=== PATIENT | female | born 1970 | race Caucasian/White ===

== ENCOUNTER 2017-10-28 16:28 | Emergency (ER) | payer BC | END 2017-10-28 21:42 | disposition home or self-care (01) | LOC: D.ER 16:28 | DX: J02.9 Acute pharyngitis, unspecified (principal) ==

== ENCOUNTER 2018-05-04 20:16 | Emergency (ER) | payer BC ==
[~2018-05-04] VITALS: Ht 162.6 cm; Wt 87.7 kg
[2018-05-04 20:35] VITALS: Ht 162.6 cm; Wt 87.7 kg
[2018-05-04] MEDS ORDERED: MAXALT10 MG PO (20:40)
[2018-05-04] MEDS ORDERED: VITAMIN D10000 UNI1 PO (20:41)
[2018-05-04] MEDS ORDERED: ELAVIL25 MG PO (20:41)
[2018-05-04] MEDS ORDERED: ATIVAN0.5 MG PO (20:41)
[2018-05-04 21:13] LABS: BASOPHILS 0.6 % (0-2); EOSINOPHILS 1.9 % (0-7); HEMATOCRIT 40.9 % (36.0-48.0); IMMATURE GRANULOCYTES 0.6 % (0-5); LYMPHOCYTES 37.1 % (15-50); MCH 29.4 pg (26.0-34.0); MCHC 34.2 g/dL (31.0-37.0); MCV 85.7 fL (80.0-100.0); MEAN PLATELET VOLUME 9.5 fL (7.4-10.4); MONOCYTES 6.3 % (2-11); NEUTROPHILS 53.5 % (40-80); PLATELET COUNT 273 10x3/uL (130-400); RBC 4.77 10x6/uL (4.00-5.40); RDW 12.5 % (11.5-14.5); WBC 8.4 10x3/uL (4.8-10.8)
[2018-05-04 21:21] LABS: APTT 28.3 SECONDS (22.8-39.4); D-DIMER-QUANTITATIVE 0.36 ug/mLFEU (0.20-0.54)
[2018-05-04 21:22] LABS: INR 0.88 (0.85-1.17); PROTIME 11.6 SECONDS (11.6-15.0)
[2018-05-04 21:26] LABS: ALBUMIN 3.6 g/dL (3.4-5.0); ALKALINE PHOSPHATASE 62 U/L (46-116); ALT (SGPT) 41 U/L (10-68); BILIRUBIN - TOTAL 0.19 mg/dL (0.2-1.3); CALC OSMOLALITY 277 mosm/kg (275-300); CALCIUM 8.4 mg/dL (8.5-10.1); CARBON DIOXIDE 23.7 mmol/L (21.0-32.0); CHLORIDE - SERUM 104 mmol/L (98-107); CREATININE - SERUM 0.9 mg/dL (0.6-1.3); GLUCOSE 119 mg/dL (74-106); POTASSIUM - SERUM 3.3 mmol/L (3.5-5.1); PROTEIN - SERUM 6.9 g/dL (6.4-8.2); SODIUM 139 mmol/L (136-145); UREA NITROGEN 11 mg/dL (7-18); eGFR NON AFRICAN AMERICAN 72 mL/min (90-120)
[2018-05-04 21:39] LABS: CKMB 0.6 U/L (0.0-3.6); CREATINE KINASE 78 UL (21-215); TROPONIN-I < 0.017 ng/mL (0.000-0.060)
[2018-05-05 04:39] VITALS: BP 129/90
== END 2018-05-05 01:30 | disposition home or self-care (01) ==
LOC: D.ER 20:16
PROVIDERS: Family Medicine
DX: G43.909 Migraine, unspecified, not intractable, without status migrainosus (principal)

== ENCOUNTER 2018-05-15 11:19 | Emergency (ER) | payer SELFPAY ==
[~2018-05-15] VITALS: Ht 162.6 cm; Wt 87.7 kg
[~2018-05-15 11:19] MED LIST: ATIVAN0.5 MG PO; ELAVIL25 MG PO; MAXALT10 MG PO; VITAMIN D10000 UNI1 PO
[2018-05-15 11:24] VITALS: Ht 162.6 cm; Wt 87.7 kg
[2018-05-15] MEDS ORDERED: ATARAX 25 MG TA25 MG PO (11:25)
[2018-05-15] MEDS ORDERED: DOXYCYCLINE HY100 M2 PO (13:12)
[2018-05-15 13:47] VITALS: BP 130/90
[2018-05-15 14:02] LABS: BASOPHILS 0.4 % (0-2); HEMATOCRIT 41.5 % (36.0-48.0); HEMOGLOBIN 14.2 g/dL (12-16); IMMATURE GRANULOCYTES 0.4 % (0-5); LYMPHOCYTES 37.1 % (15-50); MCH 29.3 pg (26.0-34.0); MCHC 34.2 g/dL (31.0-37.0); MCV 85.7 fL (80.0-100.0); MEAN PLATELET VOLUME 9.4 fL (7.4-10.4); MONOCYTES 6.3 % (2-11); NEUTROPHILS 52.8 % (40-80); PLATELET COUNT 278 10x3/uL (130-400); RBC 4.84 10x6/uL (4.00-5.40); RDW 12.5 % (11.5-14.5); WBC 6.7 10x3/uL (4.8-10.8)
[2018-05-15 14:16] LABS: ALBUMIN 3.6 g/dL (3.4-5.0); ALKALINE PHOSPHATASE 60 U/L (46-116); ALT (SGPT) 28 U/L (10-68); BILIRUBIN - TOTAL 0.22 mg/dL (0.2-1.3); CALC OSMOLALITY 276 mosm/kg (275-300); CALCIUM 9.1 mg/dL (8.5-10.1); CARBON DIOXIDE 26.7 mmol/L (21.0-32.0); CHLORIDE - SERUM 104 mmol/L (98-107); CREATININE - SERUM 0.8 mg/dL (0.6-1.3); GLUCOSE 99 mg/dL (74-106); POTASSIUM - SERUM 3.5 mmol/L (3.5-5.1); PROTEIN - SERUM 7.1 g/dL (6.4-8.2); SODIUM 139 mmol/L (136-145); UREA NITROGEN 9 mg/dL (7-18); eGFR NON AFRICAN AMERICAN 82 mL/min (90-120)
[2018-05-19 03:13] LABS: RMSF IGM 0.36 index (0.00-0.89)
[2018-05-19 13:19] LABS: EHRLICHIA CHAFF IGG Negative (Neg:<1:64); EHRLICHIA CHAFF IGM Negative (Neg:<1:20); HGE IGG TITER Negative (Neg:<1:64); HGE IGM TITER Negative (Neg:<1:20)
== END 2018-05-15 13:48 | disposition home or self-care (01) ==
LOC: D.ER 11:19
PROVIDERS: Emergency Medicine
DX: A79.9 Rickettsiosis, unspecified (principal); R50.9 Fever, unspecified

== ENCOUNTER 2019-02-13 05:46 | Emergency (ER) | payer BC ==
[~2019-02-13] VITALS: Ht 162.6 cm; Wt 87.3 kg
[~2019-02-13 05:46] MED LIST changes: +ATARAX 25 MG TA25 MG PO; +DOXYCYCLINE HY100 M2 PO
[2019-02-13 05:50] VITALS: Ht 162.6 cm; Wt 87.3 kg
[2019-02-13] MEDS ORDERED: BROMFED-DM COU473 ML (05:51)
[2019-02-13] MEDS ORDERED: PRISTIQ50 MG (05:52)
[2019-02-13] MEDS ORDERED: AMBIEN10 MG (05:52)
[2019-02-13] MEDS ORDERED: ALBUTEROL SULF8.5 GM INH (05:52)
[2019-02-13] MEDS ORDERED: ARMOUR THYROID30 MG PO (05:53)
[2019-02-13 06:29] LABS: BASOPHILS 0.5 % (0-2); HEMOGLOBIN 13.6 g/dL (12-16); IMMATURE GRANULOCYTES 0.8 % (0-5); MCH 28.6 pg (26.0-34.0); MEAN PLATELET VOLUME 9.3 fL (7.4-10.4); NEUTROPHILS 60.7 % (40-80); PLATELET COUNT 295 10x3/uL (130-400); RBC 4.76 10x6/uL (4.00-5.40); RDW 13.1 % (11.5-14.5); WBC 7.8 10x3/uL (4.8-10.8)
[2019-02-13 06:43] LABS: ALBUMIN 3.6 g/dL (3.4-5.0); ALKALINE PHOSPHATASE 59 U/L (46-116); ALT (SGPT) 43 U/L (10-68); BILIRUBIN - TOTAL 0.27 mg/dL (0.2-1.3); CALC OSMOLALITY 278 mosm/kg (275-300); CALCIUM 8.6 mg/dL (8.5-10.1); CARBON DIOXIDE 21.2 mmol/L (21.0-32.0); CHLORIDE - SERUM 106 mmol/L (98-107); CREATININE - SERUM 0.8 mg/dL (0.6-1.3); GLUCOSE 110 mg/dL (74-106); POTASSIUM - SERUM 3.4 mmol/L (3.5-5.1); PROTEIN - SERUM 6.9 g/dL (6.4-8.2); SODIUM 140 mmol/L (136-145); UREA NITROGEN 10 mg/dL (7-18); eGFR NON AFRICAN AMERICAN 82 mL/min (90-120)
[2019-02-13 06:54] LABS: APTT 28.6 SECONDS (22.8-39.4); INR 0.96 (0.85-1.17); PROTIME 12.3 SECONDS (11.6-15.0)
[2019-02-13 06:55] LABS: D-DIMER-QUANTITATIVE 0.29 ug/mLFEU (0.20-0.54)
[2019-02-13 06:56] LABS: CKMB 0.9 U/L (0.0-3.6); CREATINE KINASE 52 UL (21-215); PRO BNP 33 pg/mL (0-125)
[2019-02-13 06:57] LABS: TROPONIN-I < 0.017 ng/mL (0.000-0.060)
[2019-02-13] MEDS ORDERED: STERAPRED DS 1010 MG PO (07:02)
[2019-02-13 08:04] VITALS: BP 120/77
== END 2019-02-13 08:09 | disposition home or self-care (01) ==
LOC: D.ER 05:46
PROVIDERS: Family Medicine
DX: J45.901 Unspecified asthma with (acute) exacerbation (principal); J40 Bronchitis, not specified as acute or chronic

== ENCOUNTER 2020-03-31 23:12 | Observation (INO) | payer BC ==
[~2020-03-31] VITALS: Ht 162.6 cm; Wt 117.9 kg
[~2020-03-31 23:12] MED LIST changes: +ALBUTEROL SULF8.5 GM INH; +AMBIEN10 MG; +ARMOUR THYROID30 MG PO; +BROMFED-DM COU473 ML; +PRISTIQ50 MG; +STERAPRED DS 1010 MG PO
[2020-03-31] MEDS ORDERED: ZITHROMAX TRI-500 MG PO (23:27)
[2020-03-31 23:51] LABS: HEMOGLOBIN 13.2 g/dL (12-16); LYMPHOCYTES 47.3 % (15-50); MCH 28.1 pg (26.0-34.0); MCHC 33.8 g/dL (31.0-37.0); MEAN PLATELET VOLUME 8.8 fL (7.4-10.4); NEUTROPHILS 45.3 % (40-80); RDW 12.2 % (11.5-14.5); WBC 7.4 10x3/uL (4.8-10.8)
[2020-03-31 23:54] LABS: PLATELET COUNT 399 10x3/uL (130-400)
[2020-04-01 00:01] LABS: CALC OSMOLALITY 278 mosm/kg (275-300); CALCIUM 8.7 mg/dL (8.5-10.1); CARBON DIOXIDE 23.5 mmol/L (21.0-32.0); CHLORIDE - SERUM 106 mmol/L (98-107); CREATININE - SERUM 0.9 mg/dL (0.6-1.3); GLUCOSE 154 mg/dL (74-106); POTASSIUM - SERUM 3.2 mmol/L (3.5-5.1); SODIUM 139 mmol/L (136-145); UREA NITROGEN 8 mg/dL (7-18); eGFR NON AFRICAN AMERICAN 71 mL/min (90-120)
[2020-04-01 00:15] LABS: ALBUMIN 3.5 g/dL (3.4-5.0); ALKALINE PHOSPHATASE 80 U/L (30-120); ALT (SGPT) 74 U/L (10-68); BILIRUBIN - TOTAL 0.21 mg/dL (0.2-1.3); C-REACTIVE PROTEIN 0.4 mg/dL (0.0-0.9); LIPASE 170 U/L (73-393); MAGNESIUM - SERUM 1.9 mg/dL (1.8-2.4); PRO BNP 34 pg/mL (0-125); PROTEIN - SERUM 6.7 g/dL (6.4-8.2); TROPONIN-I < 0.017 ng/mL (0.000-0.060)
--- NOTE | 2020-04-01 02:00 | NUR ---
PT C/O ITCHING TO HER FEET AT THIS TIME. MD INFORMED. NO RASH NOTED.
--- NOTE | 2020-04-01 03:17 | NUR ---
PT STATES THAT SHE IS ABLE TO TAKE ROCEPHIN. PT HAD ROCEPHIN WEDNESDAY WITH NO REACTION. INFORMED.
[2020-04-01 03:33] VITALS: BP 125/88
--- NOTE | 2020-04-01 03:35 | NUR ---
PT ARIVES TO ROOM ROCEPHINE PUT TO PUMP BED LOW AND LOCKED AND CALL LIGHT GIVEN TO PT PT COMPLAINING OG MULTIPLE THINGS UN RELATED TO DX PT CO OF RASH AND ITCHING BENADRYL WAS GIVEN IN ER
[2020-04-01 04:38] VITALS: BP 125/88; BMI 44.7
--- NOTE | 2020-04-01 05:18 | NUR ---
NOTED NO TELEMETRY AVAILABLE NOW
--- NOTE | 2020-04-01 06:49 | NUR ---
ADMISSION ASSESSMENT COMPLETED BY RN.
[2020-04-01 08:30] LABS: BASOPHILS 0.4 % (0-2); EOSINOPHILS 0 % (0-7); HEMOGLOBIN 12.3 g/dL (12-16); LYMPHOCYTES 18.2 % (15-50); MCH 28.1 pg (26.0-34.0); MCHC 33.2 g/dL (31.0-37.0); MCV 84.7 fL (80.0-100.0); MEAN PLATELET VOLUME 9.2 fL (7.4-10.4); MONOCYTES 0.7 % (2-11); NEUTROPHILS 78.7 % (40-80); PLATELET COUNT 346 10x3/uL (130-400); RBC 4.37 10x6/uL (4.00-5.40); RDW 13.2 % (11.5-14.5); WBC 6.8 10x3/uL (4.8-10.8)
[2020-04-01 08:56] VITALS: Ht 162.6 cm; Wt 117.9 kg
--- NOTE | 2020-04-01 09:47 | NUR ---
PT AWAKE AND ORIENTED. STATES SHE FEELS BAD. NO OTHER COMPLAINTSO R CONCERNS AT THIS TIME. CL IN REACH,S RX2.
--- NOTE | 2020-04-01 10:43 | NUR ---
PT AWAKE AND ORIENTED. DRY COUGHING REGULARLY. NO COMPLAINTS OR CONCERNS AT THIS TIME. CL IN REACH, SRX2.
--- NOTE | 2020-04-01 17:50 | NUR ---
PT AWAKE AND ORIENTED, LYING IN BED. NEGATIVE COVID WILL MOVE TO 2138 WHEN ROOM IS CLEANED FROM PREVIOUS PATIENT. CL IN REACH, SRX2.
--- NOTE | 2020-04-01 18:37 | NUR ---
I have reviewed this patient and I concur with the Shift Assessment completed by the Licensed Practical Nurse today this shift.
--- NOTE | 2020-04-01 19:14 | NUR ---
PT IS AWKE AND DENIES NEEDS AT THIS TIME BED LOW AND LOCKED AND PT HAS CALL LIGHT
--- NOTE | 2020-04-01 20:04 | NUR ---
COMPUTOR IN ROOM LOCKED UP UNABLE TO SCAN MEDS THERE
[2020-04-02 00:30] VITALS: BP 101/52
[2020-04-02 04:00] VITALS: BP 130/70
[2020-04-02 06:16] LABS: BASOPHILS 0.2 % (0-2); EOSINOPHILS 0.3 % (0-7); HEMATOCRIT 36.4 % (36.0-48.0); IMMATURE GRANULOCYTES 1.4 % (0-5); LYMPHOCYTES 25.5 % (15-50); MCH 28.4 pg (26.0-34.0); MCV 86.3 fL (80.0-100.0); MEAN PLATELET VOLUME 9.3 fL (7.4-10.4); MONOCYTES 6.2 % (2-11); NEUTROPHILS 66.4 % (40-80); PLATELET COUNT 371 10x3/uL (130-400); RBC 4.22 10x6/uL (4.00-5.40); RDW 13.6 % (11.5-14.5)
[2020-04-02 07:06] LABS: ANION GAP 15.5 mmol/L (8-16); CALCIUM 8.7 mg/dL (8.5-10.1); CARBON DIOXIDE 23.3 mmol/L (21.0-32.0)
[2020-04-02 07:07] LABS: POTASSIUM - SERUM 3.8 mmol/L (3.5-5.1)
--- NOTE | 2020-04-02 07:30 | NUR ---
PT LAYING SUPINE, RR EVEN AND UNLABORED ON RA. C/O LEFT ARM SWOLLEN BUT NO PAIN. IV NOTED TO LEFT AC, SL. WAS ENCOURAGED TO EXERCISE HAND AND KEEP ELEVATED. DENIES FURTHER NEEDS OR PAIN AT THIS TIME. CALL LIGHT WITHIN REACH. WILL CONTINUE TO MONITOR.
[2020-04-02 09:28] VITALS: BP 111/65
[2020-04-02 10:43] LABS: BILIRUBIN NEGATIVE (NEGATIVE); GLUCOSE NEGATIVE (NEGATIVE); KETONE NEGATIVE (NEGATIVE); NITRITE NEGATIVE (NEGATIVE); SPECIFIC GRAVITY 1.025 (1.005-1.020); UROBILINOGEN NORMAL (NORMAL)
[2020-04-02 12:09] VITALS: BP 127/76
--- NOTE | 2020-04-02 12:15 | NUR ---
PT IS STILL COMPLAINING OF SWELLING TO LEFT UPPER EXTREMITY. CALLED AND SPOKE WITH RACHELLE NIX. NO FURTHER ORDERS AT THIS TIME.
[2020-04-02] MEDS ORDERED: SINGULAIR10 MG PO (12:22)
[2020-04-02] MEDS ORDERED: TESSALON PERLE100 MG PO (12:22)
[2020-04-02] MEDS ORDERED: ZITHROMAX TRI-500 MG PO (12:22)
[2020-04-02] MEDS ORDERED: MUCINEX600 MG PO (12:22)
[2020-04-02] MEDS ORDERED: ALBUTEROL SULF8.5 GM INH (12:22)
[2020-04-02] MEDS ORDERED: OMNICEF300 MG PO (12:23)
[2020-04-02] MEDS ORDERED: DIFLUCAN150 MG PO (12:26)
--- NOTE | 2020-04-02 14:00 | NUR ---
D/C INSTRUCTIONS REVIEWED WITH PT. DENIES FURTHER QUESTIONS AND VERBALIZED UNDERSTANDING. IV D/C WITH CATHETER TIP INTACT. PT LEFT WITH ALL BELONGINGS VIA WHEELCHAIR TO PERSONAL VEHICLE.
== END 2020-04-02 14:34 | disposition home or self-care (01) ==
LOC: D.ER 23:12 → D.M2 04-01 01:47 → OBSVTIME 04-01 01:47 → D.M2 04-01 23:21
PROVIDERS: Family Medicine; ADMIT Family Medicine; ATTEND Family Medicine
DX: J18.9 Pneumonia, unspecified organism (principal); E87.6 Hypokalemia; E03.9 Hypothyroidism, unspecified; F41.9 Anxiety disorder, unspecified; E66.9 Obesity, unspecified

== ENCOUNTER 2020-12-14 18:47 | Emergency (ER) | payer OTHER ==
[~2020-12-14] VITALS: Ht 162.6 cm; Wt 96.8 kg
[~2020-12-14 18:47] MED LIST changes: +DIFLUCAN150 MG PO; +MUCINEX600 MG PO; +OMNICEF300 MG PO; +SINGULAIR10 MG PO; +TESSALON PERLE100 MG PO; +ZITHROMAX TRI-500 MG PO
[2020-12-14 19:08] VITALS: Ht 162.6 cm; Wt 96.8 kg
[2020-12-14] MEDS ORDERED: OMEPRAZOLE20 M1 PO (19:10)
[2020-12-14] MEDS ORDERED: GLUCOPHAGE500 MG PO (19:10)
[2020-12-14] MEDS ORDERED: CLARITHROMYCIN500 M1 PO (19:10)
[2020-12-14] MEDS ORDERED: FLAGYL500 MG PO (19:11)
[2020-12-14] MEDS ORDERED: LINZESS72 MCG PO (19:11)
[2020-12-14] MEDS ORDERED: AMBIEN10 MG PO (19:11)
[2020-12-14] MEDS ORDERED: PRISTIQ50 MG PO (19:12)
[2020-12-14] MEDS ORDERED: TORADOL10 MG PO (19:13)
[2020-12-14 19:34] LABS: BASOPHILS 0.4 % (0-2); EOSINOPHILS 1.5 % (0-7); HEMATOCRIT 41.1 % (36.0-48.0); HEMOGLOBIN 13.8 g/dL (12-16); IMMATURE GRANULOCYTES 0.4 % (0-5); LYMPHOCYTE ABS# 2.64 10x3/uL (1.18-3.74); LYMPHOCYTES 24.2 % (15-50); MCH 28.9 pg (26.0-34.0); MCHC 33.6 g/dL (31.0-37.0); MEAN PLATELET VOLUME 10.2 fL (7.4-10.4); MONOCYTES 8.5 % (2-11); RBC 4.78 10x6/uL (4.00-5.40); WBC 10.9 10x3/uL (4.8-10.8)
[2020-12-14 19:35] LABS: PLATELET COUNT 191 10x3/uL (130-400)
[2020-12-14 19:50] LABS: CALC OSMOLALITY 271 mosm/kg (275-300); CALCIUM 8.8 mg/dL (8.5-10.1); CARBON DIOXIDE 23.5 mmol/L (21.0-32.0); CHLORIDE - SERUM 102 mmol/L (98-107); CREATININE - SERUM 0.9 mg/dL (0.6-1.3); GLUCOSE 102 mg/dL (74-106); POTASSIUM - SERUM 4.2 mmol/L (3.5-5.1); SODIUM 137 mmol/L (136-145); UREA NITROGEN 8 mg/dL (7-18); eGFR NON AFRICAN AMERICAN 71 mL/min (90-120)
[2020-12-14 19:58] LABS: BILIRUBIN NEGATIVE (NEGATIVE); KETONE NEGATIVE (NEGATIVE); NITRITE NEGATIVE (NEGATIVE); UROBILINOGEN NORMAL mg/dL (< 2)
[2020-12-14 19:59] LABS: ALKALINE PHOSPHATASE 78 U/L (30-120); ALT (SGPT) 42 U/L (10-68); AMYLASE - SERUM 32 U/L (25-115); BILIRUBIN - TOTAL 0.43 mg/dL (0.2-1.3); LIPASE 110 U/L (73-393); PROTEIN - SERUM 7.1 g/dL (6.4-8.2); TROPONIN-I < 0.017 ng/mL (0.000-0.060)
[2020-12-14 20:00] LABS: WHITE CELLS - URINE 0-5 HPF (0-4)
[2020-12-14 20:01] LABS: BACTERIA FEW HPF (NONE SEEN); HCG URINE NEGATIVE (NEGATIVE); SQUAMOUS EPITHELIAL 0-5 HPF (0-4)
[2020-12-14] MEDS ORDERED: ZOFRAN ODT4 MG/UDTAB PO (21:33)
[2020-12-14] MEDS ORDERED: ULTRAM50 MG PO (21:33)
[2020-12-14 22:01] VITALS: BP 132/87
== END 2020-12-14 22:03 | disposition home or self-care (01) ==
LOC: D.ER 18:47
PROVIDERS: Family Medicine
DX: K57.92 Diverticulitis of intestine, part unspecified, without perforation or abscess without bleeding (principal); E11.9 Type 2 diabetes mellitus without complications; I10 Essential (primary) hypertension; E78.5 Hyperlipidemia, unspecified; Z79.84 Long term (current) use of oral hypoglycemic drugs